=== PATIENT | female | born 1950 | race Two or more races ===

== ENCOUNTER 2020-05-01 08:40 | Inpatient (IN) | payer OTHER, MEDICAID ==
[~2020-05-01] VITALS: Ht 154.9 cm; Wt 106.5 kg
[2020-05-01] MEDS ORDERED: cefTRIAXone 1GM/50ML D5W 50 ML IV ONE ×2 (09:05→11:00)
[2020-05-01] MEDS ORDERED: AZITHROMYCIN 500MG/ 250ML 250 ML IV ONE (09:30)
[2020-05-01] MEDS ORDERED: ZINC SULFATE 220mg CAP or TAB PO ONE (09:30)
[2020-05-01] MEDS ORDERED: SODIUM CHLORIDE 0.9% 1,000 ML IV ONE ×2 (09:30)
[2020-05-01] MEDS ORDERED: ASCORBIC ACID 500 MG TAB PO ONE (09:30)
[2020-05-01 09:43] LABS: Basophils # (auto) 0 10 ^3/uL (0-0.2); Basophils % (auto) 0.3 % (0.0-2.0); Eosinophils # (auto) 0 10 ^3/uL (0-0.8); Eosinophils % (auto) 0.4 % (0.0-7.0); Hematocrit 41.1 % (36.0-46.0); Hemoglobin 13.4 g/dL (12.2-16.2); Lymphocytes % (auto) 16.5 % (10.0-50.0); Mean Corpuscular Hemoglobin 30.6 pg (28.0-32.0); Mean Corpuscular Hgb Conc. 32.6 g/dL (32.0-36.0); Mean Corpuscular Volume 93.8 fL (80.0-100.0); Monocytes # (auto) 0.4 10 ^3/uL (0-1.3); Monocytes % (auto) 6.6 % (0.0-12.0); Neutrophils # (auto) 4.4 10 ^3/uL (1.6-8.6); Neutrophils % (auto) 76.2 % (37.0-80.0); Nucleated Red Blood Cells % 0.1 %; Platelet Count (auto) 148 10^3/uL (140-450); Red Blood Cells 4.39 10^6/uL (4.0-5.20); Red Cell Distribution Width 15.2 % (11.8-14.3); White Blood Cell 5.7 10^3/uL (4.4-10.8)
[2020-05-01 09:53] LABS: Albumin 3.1 g/dL (3.4-5.0); Anion Gap 3 (5-15); Blood Urea Nitrogen 11 mg/dL (7-18); Calcium 8.8 mg/dL (8.5-10.1); Carbon Dioxide 33 mmol/L (21-32); Chloride 103 mmol/L (98-107); Glucose 110 mg/dL (74-106); Potassium 4.1 mmol/L (3.5-5.1); Sodium 139 mmol/L (136-145)
[2020-05-01 09:59] LABS: Alanine Aminotransferase 31 U/L (13-56); Alkaline Phosphatase 105 U/L (45-117); Aspartate Aminotransferase 27 U/L (15-37); BUN/Creatinine Ratio 13.1; Bilirubin, Total 0.7 mg/dL (0.2-1.0); GFR African American 87 mL/min; GFR Non-African American 72 mL/min; Lactate Dehydrogenase 226 U/L (84-246); Total Protein 8.4 g/dL (6.4-8.2)
[2020-05-01 10:17] LABS: INR 1.06 (0.9-1.15); Partial Thromboplastin Time 32.2 sec (23.64-32.05)
[2020-05-01 10:30] VITALS: BP 110/64
[2020-05-01] MEDS ORDERED: FUROSEMIDE 20 MG/2 ML VIAL IV ONE (10:30)
[2020-05-01] MEDS ORDERED: ACETAMINOPHEN 500 MG TAB PO ONE (11:30)
[2020-05-01 12:24] LABS: Urine Bacteria FEW /hpf (None Seen); Urine Blood Negative /uL (Negative); Urine Mucus FEW (None Seen); Urine Specific Gravity 1.007 (1.001-1.035); Urine WBC 15 /hpf (0 - 5)
[2020-05-01] MEDS ORDERED: NITROGLYCERIN 0.4 MG SL TAB SL PRN (12:30)
[2020-05-01] MEDS ORDERED: MORPHINE SULF INJ 2 MG/ML SYRINGE 1ML IV PRN (12:30)
[2020-05-01] MEDS ORDERED: ACETAMINOPHEN 500 MG TAB PO PRN (13:00)
[2020-05-01] MEDS: ALBUTEROL SULF HFA 90MCG INH 200DOSE IN SCH ×2 (14:00→22:07)
[2020-05-01] MEDS: methylPREDNISolone SOD SUCC 40 MG/ML VL IV SCH (14:09)
[2020-05-01] MEDS: CLINDAMYCIN 600MG IV 50 ML IV SCH ×2 (14:10→22:07)
--- NOTE | 2020-05-01 15:25 | NUR ---
Telemetry admit from [facility] admitted to Telemetry unit after SBAR received. Patient oriented to Dunia Greenberg, primary RN, unit, room, bed, and unit policies regarding patient care and visiting hours. Patient now on continuous telemetry monitoring,telemetry reading on arrival to unit is . Patient placed on bedside oxygen, weighed by bedscale and encouraged to call if they need something. All questions and concerns addressed, patient verbalized understanding. Note:
--- NOTE | 2020-05-01 16:19 | NUR ---
HISTOR FOR PATIENT TAKEN FROM ER PHYSICIAN DOCUMENTATION. PATIENT ONLY SPEAKS MAURITIAN AND NO BLUE PHONE AVAILABLE FOR TRANSLATION.
[2020-05-01 16:27] VITALS: BP 105/68
[2020-05-01] MEDS ORDERED: IOHEXOL 350 MG/ML 100ML IJ ONE (16:34)
--- NOTE | 2020-05-01 22:48 | NUR ---
RT NOTE MDI GIVEN BY RN. RT VERIFIED THAT RN WAS AWARE OF PROPER ADMINISTRATION OF MDI. MDI GIVEN WITHOUT INCIDENT.
--- NOTE | 2020-05-02 00:25 | NUR ---
PATIENT SLEEPING GOT CALL THAT PATIENTS O2 WAS AT 78 PERCENT PT EAS ON 6 L N/C. CALLED RT FOR A SIMPLE MASK.
--- NOTE | 2020-05-02 00:30 | NUR ---
PLACED PATIENT ON SIMPLE MASK ON 6L NOW O2 IS 98% NO SIGNS OF DISTRESS NOTED
[2020-05-02] MEDS: methylPREDNISolone SOD SUCC 40 MG/ML VL IV SCH ×2 (00:44→13:15)
--- NOTE | 2020-05-02 03:10 | NUR ---
PATIENT RESTING DENIES SOB DISTRESS OR PAIN. FALL PRECAUTIONS IN PLACE
--- NOTE | 2020-05-02 03:10 | NUR ---
RECEIVED REPORT FROM GALE LEWIS
--- NOTE | 2020-05-02 05:02 | NUR ---
LAB NOTIFIED UNABLE TO DRAW BLOOD. PER ORDER DISPATCHER THEY WILL SEND SOMEONE
[2020-05-02 05:03] VITALS: BP 106/58
[2020-05-02] MEDS: CLINDAMYCIN 600MG IV 50 ML IV SCH (05:17)
[2020-05-02] MEDS: ALBUTEROL SULF HFA 90MCG INH 200DOSE IN SCH ×4 (05:17→22:51)
--- NOTE | 2020-05-02 05:33 | NUR ---
PATIENT EDUCATED ON HOW TO USE IS PATIENT VERBALIZED UNDERSTANDING
--- NOTE | 2020-05-02 05:37 | NUR ---
CALLED LAB AGAIN. SPOKE WITH JOSHUA FROM LAB FOR LABS TO BE DRAWN. PER JOSHUA LABS WILL BE DRAWN " BETWEEN NOW AND 0700" [employer] SUPERVISOR IS MAKING ROUNDS AT THE MOMENT.
--- NOTE | 2020-05-02 07:05 | NUR ---
MDI ADMINISTERED BY JARED RN AT APPROXIMATELY 0517, PT ON 2L NC WITH SPO2 97%, HR 86, RR 18 WITH CLEAR/DIMINISHED BS. WILL CONTINUE TO MONITOR PT.
--- NOTE | 2020-05-02 07:25 | NUR ---
REPORT GIVEN TO DAYSHIFT RN PATIENT DENIES SOB DISTRESS OR PAIN
--- NOTE | 2020-05-02 07:30 | NUR ---
Opening Shift Note Assumed care of patient, awake and alert and oriented. No S/S of distress/SOB or pain on 6L via simple mask. Bed in low and locked position, rails up x2, no-slip socks on, bed alarm on. On COVID unit, appropriate precautions taken. Instructed on POC and to call for assist PRN, will continue to monitor for changes Q1hr and PRN.
[2020-05-02 08:00] VITALS: BP 106/62
--- NOTE | 2020-05-02 08:30 | NUR ---
OXYGEN PATIENT OXYGEN LEVEL ON MASK WAS 98%, PLACED PATIENT ON 5 LPM VIA NASAL CANNULA WHILE AWAKE TO EAT BREAKFAST AND TAKE MEDICATIONS, OXYGEN LEVELS MAINTAINED AT 94%, WILL CONTINUE TO MONITOR.
[2020-05-02 08:43] LABS: Basophils # (auto) 0 10 ^3/uL (0-0.2); Basophils % (auto) 0.1 % (0.0-2.0); Eosinophils # (auto) 0 10 ^3/uL (0-0.8); Hematocrit 42.2 % (36.0-46.0); Hemoglobin 13.5 g/dL (12.2-16.2); Lymphocytes # (auto) 0.5 10 ^3/uL (0.4-5.4); Lymphocytes % (auto) 11.5 % (10.0-50.0); Mean Corpuscular Hemoglobin 30.5 pg (28.0-32.0); Mean Corpuscular Hgb Conc. 32.1 g/dL (32.0-36.0); Mean Corpuscular Volume 95.1 fL (80.0-100.0); Monocytes # (auto) 0.2 10 ^3/uL (0-1.3); Monocytes % (auto) 4.9 % (0.0-12.0); Neutrophils % (auto) 83.5 % (37.0-80.0); Nucleated Red Blood Cells % 0.1 %; Platelet Count (auto) 147 10^3/uL (140-450); Red Blood Cells 4.44 10^6/uL (4.0-5.20); Red Cell Distribution Width 15.1 % (11.8-14.3); White Blood Cell 4.7 10^3/uL (4.4-10.8)
--- NOTE | 2020-05-02 09:00 | NUR ---
[facility] SPOKE TO MARCH, APPAREL EMBROIDERY DIGITIZER AT [facility] REQUESTING CLINICAL INFORMATION TO BE FAXED TO [phone] CALL BACK NUMBER IS [phone], ENDORSED TO HEAD OF MAINTENANCE.
[2020-05-02 09:01] LABS: Albumin 2.9 g/dL (3.4-5.0); Calcium 8.7 mg/dL (8.5-10.1); Potassium 4.5 mmol/L (3.5-5.1)
[2020-05-02 09:04] LABS: Bilirubin, Total 0.4 mg/dL (0.2-1.0); Total Protein 8.2 g/dL (6.4-8.2)
[2020-05-02] MEDS ORDERED: levoFLOXacin 500MG 100 ML IV SCH (10:00)
[2020-05-02] MEDS: ENOXAPARIN SOD 40 MG/0.4 ML SYRINGE SC SCH (10:07)
[2020-05-02] MEDS: ZINC SULFATE 220mg CAP or TAB PO SCH (10:08)
[2020-05-02] MEDS: ASCORBIC ACID 1,000 MG TAB PO SCH (10:08)
[2020-05-02] MEDS: CHOLECALCIFEROL (VITD3) 1,000IU=25mCg TAB PO SCH (10:08)
[2020-05-02 12:00] VITALS: BP 116/53
[2020-05-02] MEDS ORDERED: FUROSEMIDE 40 MG/4 ML VIAL IV ONE (12:45)
[2020-05-02] MEDS ORDERED: DOXYCYCLINE 100 MG TAB/CAP PO ONE (12:45)
--- NOTE | 2020-05-02 13:34 | NUR ---
MDI GIVEN WITH NO ADVERSE RX NOTED, PT ON 2L NC WITH SPO2 98%, HR 78, RR 20 WITH CLEAR/DIMINISHED BS. NO SOB NO DISTRESS NOTED. WILL CONTINUE TO MONITOR PT.
[2020-05-02 16:30] VITALS: BP 103/74
[2020-05-02] MEDS: FUROSEMIDE 40 MG/4 ML VIAL IV SCH (18:17)
[2020-05-02] MEDS ORDERED: METO-158 PO (18:54)
[2020-05-02] MEDS ORDERED: FISH1CAP5 PO (18:54)
--- NOTE | 2020-05-02 19:50 | NUR ---
Opening Shift Note Assumed care of patient with PPE provided. Patient is awake and alert. No S/S of distress/SOB or pain noted. Call light within reach. Bed in lowest locked position with bed rails up x2. Instructed on POC and to call for assist PRN.
[2020-05-02 20:00] VITALS: BP 132/68
[2020-05-02] MEDS: DOXYCYCLINE 100 MG TAB/CAP PO SCH (21:33)
--- NOTE | 2020-05-02 22:52 | NUR ---
MDI ADMINISTERED UNSCHEDULED ADMINISTRATION, SINCE THE SCHEDULED 2200 HAD BEEN MARKED MUCH EARLIER. NO RESPIRATORY DISTRESS NOTED. WILL CONTINUE WITH NEXT SCHEDULED TX.
[2020-05-03] VITALS: BP 112/62
[2020-05-03] MEDS: methylPREDNISolone SOD SUCC 40 MG/ML VL IV SCH ×2 (01:05→14:26)
[2020-05-03 05:00] VITALS: BP 137/50
--- NOTE | 2020-05-03 05:37 | NUR ---
CRITICAL LAB, HOSPITALIST PAGED: HEMATOLOGY CALLED AND REPORTED GRAM POSITIVE COCCI IN CLUSTERS IN THE BLOOD. TO NOTIFY HOSPITALIST. WAITING FOR CALL BACK.
[2020-05-03] MEDS: ALBUTEROL SULF HFA 90MCG INH 200DOSE IN SCH ×3 (06:00→22:23)
[2020-05-03] MEDS: FUROSEMIDE 40 MG/4 ML VIAL IV SCH ×3 (06:27→22:23)
--- NOTE | 2020-05-03 06:41 | NUR ---
HOSPITALIST CALLED BACK: HOSPITALIST SERGIO CALLED BACK AND NOTIFIED OF BLOOD CULTURE RESULTS. NEW ORDERS RECEIVED. TO PLACE ORDERS.
--- NOTE | 2020-05-03 07:35 | NUR ---
Opening Shift Note Assumed care of patient, awake and alert, cymraes speaking. No S/S of distress/SOB or pain, sitting up in a chair. Instructed on POC and to call for assist PRN, will continue to monitor for changes Q1hr and PRN.
[2020-05-03 08:00] VITALS: BP 127/68
[2020-05-03] MEDS: ZINC SULFATE 220mg CAP or TAB PO SCH (09:15)
[2020-05-03] MEDS: levoFLOXacin 500MG 100 ML IV SCH (09:15)
[2020-05-03] MEDS: DOXYCYCLINE 100 MG TAB/CAP PO SCH (09:16)
[2020-05-03] MEDS: ASCORBIC ACID 1,000 MG TAB PO SCH (09:16)
[2020-05-03] MEDS: ENOXAPARIN SOD 40 MG/0.4 ML SYRINGE SC SCH (09:17)
[2020-05-03] MEDS: CHOLECALCIFEROL (VITD3) 1,000IU=25mCg TAB PO SCH (09:17)
[2020-05-03 16:00] VITALS: BP 125/66
--- NOTE | 2020-05-03 19:00 | NUR ---
Opening Shift Note Assumed care of patient, awake and alert. No S/S of distress/SOB or pain. Safety measures in place bed in lowest position, side rails up x2, and call light within reach. Instructed on POC and to call for assist PRN, will continue to monitor for changes Q1hr and PRN.
[2020-05-03 22:00] VITALS: BP 116/75
[2020-05-03] MEDS: ENOXAPARIN SOD 120 MG/0.8 ML SYRINGE SC SCH (22:22)
--- NOTE | 2020-05-03 22:23 | NUR ---
Respiratory note: PT'S SCHEDULED MDI TREATMENT WAS GIVEN BY GALE NICOLE AT 2223. HR 75 RR 18 SP02 95% ON 4L NASAL CANNULA.
[2020-05-04] MEDS: methylPREDNISolone SOD SUCC 40 MG/ML VL IV SCH ×2 (02:08→13:40)
[2020-05-04] MEDS: ALBUTEROL SULF HFA 90MCG INH 200DOSE IN SCH ×3 (06:02→22:48)
[2020-05-04] MEDS: FUROSEMIDE 40 MG/4 ML VIAL IV SCH (06:03)
[2020-05-04 06:06] VITALS: BP 112/54
--- NOTE | 2020-05-04 07:30 | NUR ---
Respiratory note: MDI BREATHING TX ADMINISTERED BY NOC SHIFT RN. SPO2 97% ON 4LPM NASAL CANNULA. WILL RETURN FOR NEXT SCHEDULED TX.
--- NOTE | 2020-05-04 07:42 | NUR ---
Opening Shift Note Assumed care of patient, awake and alert, tristanian speaking. No S/S of distress/SOB or pain. Instructed on POC and to call for assist PRN, will continue to monitor for changes Q1hr and PRN.
[2020-05-04 09:28] LABS: Basophils # (auto) 0 10 ^3/uL (0-0.2); Eosinophils # (auto) 0 10 ^3/uL (0-0.8); Hematocrit 45.2 % (36.0-46.0); Hemoglobin 14.7 g/dL (12.2-16.2); Lymphocytes # (auto) 0.5 10 ^3/uL (0.4-5.4); Lymphocytes % (auto) 7.7 % (10.0-50.0); Mean Corpuscular Hemoglobin 30.3 pg (28.0-32.0); Mean Corpuscular Hgb Conc. 32.5 g/dL (32.0-36.0); Mean Corpuscular Volume 93.2 fL (80.0-100.0); Monocytes # (auto) 0.2 10 ^3/uL (0-1.3); Monocytes % (auto) 3.3 % (0.0-12.0); Platelet Count (auto) 187 10^3/uL (140-450); Red Blood Cells 4.85 10^6/uL (4.0-5.20); Red Cell Distribution Width 14.8 % (11.8-14.3); White Blood Cell 6.7 10^3/uL (4.4-10.8)
[2020-05-04 09:49] LABS: BUN/Creatinine Ratio 27.3; Calcium 9.2 mg/dL (8.5-10.1); Magnesium 2.1 mg/dL (1.6-2.6)
[2020-05-04] MEDS: ZINC SULFATE 220mg CAP or TAB PO SCH (10:35)
[2020-05-04] MEDS: levoFLOXacin 500MG 100 ML IV SCH (10:35)
[2020-05-04] MEDS: ASCORBIC ACID 1,000 MG TAB PO SCH (10:36)
[2020-05-04] MEDS: CHOLECALCIFEROL (VITD3) 1,000IU=25mCg TAB PO SCH (10:36)
[2020-05-04] MEDS: ENOXAPARIN SOD 120 MG/0.8 ML SYRINGE SC SCH ×2 (10:36→22:49)
[2020-05-04 11:56] VITALS: BP 127/71
--- NOTE | 2020-05-04 12:48 | NUR ---
Est energy needs 9834-4963 kcal (14-18 kcal/kg BW 106.9kg) Est protein needs 48-57g (1-1.2g/kg IBW 47.7kg) Will reassess prn. Addendum: 05/04/20 at [address] Amended: Links added.
[2020-05-04 14:07] VITALS: BP 127/71
--- NOTE | 2020-05-04 14:07 | NUR ---
Respiratory note: MDI TX WAS ADMINISTERED BY RN. PT CURRENTLY HR 80, RR 16, SPO2 95% ON 4LPM NASAL CANNULA. NO S/S OF RESPIRATORY DISTRESS NOTED.
--- NOTE | 2020-05-04 20:30 | NUR ---
Opening Shift Note Assumed care of patient, awake and alert, oriented x 4, follows direction. On oxygen at 3L via NC with even and unlabored respiration. patient was able to return demonstration with proper use of incentive spirometer, 500ml inspire volume, encourage patient to continue to use, patient verbalized understanding. patient uses BSC independently with steady gait and turns in bed independently. Bed in low locked position with side rails up x 2 and call light within reach. No S/S of distress/SOB or pain. Instructed on POC and to call for assist PRN, will continue to monitor for changes Q1hr and PRN.
[2020-05-04 22:00] VITALS: BP 108/59
--- NOTE | 2020-05-04 22:48 | NUR ---
RT NOTE MDI GIVEN BY GALE TOBAR. RT VERIFIED THAT RN WAS FAMILIAR WITH THE ADMINISTRATION OF MDI.
[2020-05-05] MEDS: methylPREDNISolone SOD SUCC 40 MG/ML VL IV SCH ×2 (01:08→12:56)
[2020-05-05 05:00] VITALS: BP 129/74
[2020-05-05] MEDS: ALBUTEROL SULF HFA 90MCG INH 200DOSE IN SCH ×3 (06:23→22:00)
--- NOTE | 2020-05-05 06:43 | NUR ---
Closing Note patient resting in bed with oxygen on at 3L via NC with even and unlabored respiration. no s/s of distress. bed in low locked position with side rails up x 2 and call light within reach.
--- NOTE | 2020-05-05 08:00 | NUR ---
RT NOTE: TX GIVEN BY RN. NO SIGNS OF RESPIRATORY DISTRESS. WILL CONTINUE TO MONITOR.
--- NOTE | 2020-05-05 08:00 | NUR ---
Received pt resting comfortably, assisted pt out of bed to BSC, pt had a BM, pt assisted back to bed, call light within reach, pt denies pain or discomfort at this time.
--- NOTE | 2020-05-05 09:25 | NUR ---
Oxygen pt's O2 sat 96& at 3 lit N/C, decreased pt's O2 level to 2 lit N/C, pt's O2 sat 93%, will continue to monitor pt.
[2020-05-05 09:51] LABS: Basophils # (auto) 0 10 ^3/uL (0-0.2); Basophils % (auto) 0.2 % (0.0-2.0); Eosinophils # (auto) 0 10 ^3/uL (0-0.8); Hematocrit 43.2 % (36.0-46.0); Hemoglobin 14.4 g/dL (12.2-16.2); Lymphocytes # (auto) 0.5 10 ^3/uL (0.4-5.4); Lymphocytes % (auto) 14.3 % (10.0-50.0); Mean Corpuscular Hemoglobin 30.9 pg (28.0-32.0); Mean Corpuscular Hgb Conc. 33.2 g/dL (32.0-36.0); Monocytes # (auto) 0.2 10 ^3/uL (0-1.3); Monocytes % (auto) 4.4 % (0.0-12.0); Neutrophils # (auto) 2.9 10 ^3/uL (1.6-8.6); Neutrophils % (auto) 81.1 % (37.0-80.0); Nucleated Red Blood Cells % 0.1 %; Platelet Count (auto) 171 10^3/uL (140-450); Red Blood Cells 4.64 10^6/uL (4.0-5.20); Red Cell Distribution Width 14.9 % (11.8-14.3); White Blood Cell 3.6 10^3/uL (4.4-10.8)
--- NOTE | 2020-05-05 10:00 | NUR ---
Hold Plaquenil due to pt's QTC 506, will inform doctor.
[2020-05-05 10:13] VITALS: BP 133/80
--- NOTE | 2020-05-05 10:20 | NUR ---
Oxygen pt's O2 sat 96% at 2 lit N/C, decreased pt's O2 level to 1 lit N/C, pt's O2 sat 92%, will continue to monitor pt.
[2020-05-05 10:23] LABS: Calcium 9.1 mg/dL (8.5-10.1); Potassium 4.2 mmol/L (3.5-5.1)
[2020-05-05 10:28] LABS: BUN/Creatinine Ratio 34.4; Bilirubin, Total 0.7 mg/dL (0.2-1.0); Total Protein 8.2 g/dL (6.4-8.2)
[2020-05-05] MEDS: levoFLOXacin 500MG 100 ML IV SCH (10:30)
[2020-05-05] MEDS: ZINC SULFATE 220mg CAP or TAB PO SCH (10:30)
[2020-05-05] MEDS: ASCORBIC ACID 1,000 MG TAB PO SCH (10:30)
[2020-05-05] MEDS: CHOLECALCIFEROL (VITD3) 1,000IU=25mCg TAB PO SCH (10:31)
[2020-05-05] MEDS: ENOXAPARIN SOD 120 MG/0.8 ML SYRINGE SC SCH ×2 (10:31→22:00)
[2020-05-05 12:34] VITALS: BP 120/78
--- NOTE | 2020-05-05 14:26 | NUR ---
Pt's current O2 saturation 92% at room air, pt educated to continue with the incentive spirometer, pt re educated on the use, the importance, and obtained return demonstration, pt was able to reach 1000 ml, will continue to monitor pt.
--- NOTE | 2020-05-05 14:30 | NUR ---
RT NOTE: CALLED WAS MADE TO RN IN COVID UNIT TO SEE IF MDI TX HAD BEEN GIVEN BEFORE I PUT ON PPE AND ENTERED UNIT. RN STATED THAT SHE HAD ALREADY GIVEN TX AND THAT PT WAS STILL ON 2L NC AND STABLE WITH NO SIGNS OF RESPIRATORY DISTRESS. VITALS SEEN ON MONITOR AT [facility]. WILL CONTINUE TO MONITOR. Addendum: 05/05/20 at 1516 by RT VIRGINIE RT PT ON 3L NC NOT 2L NC
--- NOTE | 2020-05-05 14:45 | NUR ---
Oxygen Received a call from tele monitor unit to report pt's O2 sat to be at 84%, pt laying in bed, pt pull up in bed and elevated HOB, pt placed back on 1 lit of O2, pt's O2 level at 88%, increased oxygen to 2 lit via N/C, pt's O2 at 92%, will continue to monitor pt. Pt also educated to turn and reposition frequently, will continue to monitor pt.
--- NOTE | 2020-05-05 15:18 | NUR ---
Doctor called and spoke to Dr. Aguiar, doctor informed that plaquenil was held due to pt's QTC 506, doctor also informed that pt was titrated to room air and that pt's O2 sat decreased when pt lay back in bed to 84%, pt placed back on 2 lit via N/C. Pt's P2 at 92%.
[2020-05-05 16:41] VITALS: BP 127/73
--- NOTE | 2020-05-05 17:59 | NUR ---
Hospitalist MD Aguiar at bedside, aware of patient status. Per MD Aguiar cont to attempt getting patient off O2. If patient's o2 sats cont to trend down tomorrow, then patient may need to go home with home o2. MD Aguiar also informed patient that she will need to start using CPAP machine at home. Per patient she has a CPAP machine at home already. MD Aguiar explained POC of care to patient and patient verbalized understanding. Will inform primary RN Carol.
--- NOTE | 2020-05-05 18:25 | NUR ---
Oxygen Will attempt to titrate pt off the oxygen as per doctor's request, pt's O2 sat 95% at 2 lit N/C, decreased pt's O2 level to 1 lit N/C, pt's O2 sat 93%, will continue to monitor pt.
--- NOTE | 2020-05-05 20:00 | NUR ---
OXYGEN PATIENT SATURATING AT 95% ON 1L NC AT THIS TIME. WILL TITRATE O2 DOWN TO .5L. WILL CONTINUE TO MONITOR.
[2020-05-05 21:30] VITALS: BP 117/56
--- NOTE | 2020-05-05 21:35 | NUR ---
OXYGEN PATIENT TOLERATING O2 AT .5L SATURATING AT 93%. WILL CONTINUE TO MONITOR.
--- NOTE | 2020-05-05 22:00 | NUR ---
Respiratory note: PT'S SCHEDULED MDI TREATMENT WAS GIVEN BY GALE HASKINS AT 2200.
--- NOTE | 2020-05-05 22:01 | NUR ---
MEDICATION HELD PATIENTS QTC ON EKG IS 509. PER MD NOTES, PLAQUENIL IS TO BE HELD.
--- NOTE | 2020-05-05 22:34 | NUR ---
OXYGEN PATIENTS O2 DROPPED TO 85% WHILE SLEEPING. WOKE PATIENT UP AND HAD HER TAKE DEEP BREATHS IN AND OUT, O2 WENT UP TO 95% OXYGEN WAS INCREASED TO 2L WHILE PATIENT SLEEPS. WILL CONTINUE TO MONITOR.
--- NOTE | 2020-05-05 23:44 | NUR ---
OXYGEN PATIENTS OXYGEN IS AT 95% SATURATION ON 2L NASAL CANNULA. WILL CONTINUE TO MONITOR.
[2020-05-06 05:00] VITALS: BP 118/75
[2020-05-06] MEDS: ALBUTEROL SULF HFA 90MCG INH 200DOSE IN SCH ×2 (05:27→14:26)
--- NOTE | 2020-05-06 05:27 | NUR ---
Respiratory note: NO RESPIRATORY DISTRESS NOTED. SPO2 98% ON 2 L NC, HR 52, RR 18, BS CLEAR/DIMINISHED BILATERALLY. 1 PUFF ALBUTEROL (90MCG) GIVEN VIA MDI, WITH CHAMBER BY RN. NO ADVERSE EFFECTS NOTED. WILL CONTINUE TO MONITOR PT. CHARTING COMPLETE FROM OUTSIDE OF ROOM.
--- NOTE | 2020-05-06 07:30 | NUR ---
Opening Shift Note Assumed care of patient, awake and alert, spainish speaking. No S/S of distress/SOB or pain. Instructed on POC and to call for assist PRN, will continue to monitor for changes Q1hr and PRN.
[2020-05-06 08:30] VITALS: BP 130/65
[2020-05-06] MEDS ORDERED: methylPREDNISolone SOD SUCC 40 MG/ML VL IV SCH (10:00)
[2020-05-06] MEDS ORDERED: levoFLOXacin 500 MG TAB PO SCH (10:00)
--- NOTE | 2020-05-06 10:32 | NUR ---
O2 removed, patient sats at 87-88% sitting, 83-84 standing on RA
[2020-05-06] MEDS: ZINC SULFATE 220mg CAP or TAB PO SCH (10:41)
[2020-05-06] MEDS: ENOXAPARIN SOD 120 MG/0.8 ML SYRINGE SC SCH (10:42)
[2020-05-06] MEDS: CHOLECALCIFEROL (VITD3) 1,000IU=25mCg TAB PO SCH (10:42)
[2020-05-06] MEDS: ASCORBIC ACID 1,000 MG TAB PO SCH (10:42)
[2020-05-06 13:00] VITALS: BP 116/72
--- NOTE | 2020-05-06 14:23 | NUR ---
assessment Patient is a 69 year old female who is alert and oriented. Yeimi BEASLEY is translating for us. Prior to admission patient lived home with family and functioned independently. Patient informed me she is able to care for her own ADLs. Per patient she will return home to her prior living arrangements post discharge and will need transportation home. Patient informed me she has a cane for home use. Patients PCP is in [place]. PAtient feels safe returning home on discharge. I informed patient she has a right to speak to a psychotherapist social worker regarding all care. I informed patient she has a right to participate in any and all discharge planning. Patient does not have a POA and advanced directive. I have offered patient information on POA and advanced directives. I informed the patient the advantages and benefits of having an Advanced Directive. Patient verbalized understanding and agreed to discharge plan. Addendum: 05/06/20 at 1426 by Isela OSUNA Amended: Links added.
--- NOTE | 2020-05-06 14:26 | NUR ---
Respiratory note: PT GIVEN 1 PUFF ALBUTEROL (90MCG) GIVEN VIA MDI WITH CHAMBER, WITH NO ADVERSE EFFECTS NOTED. SPO2 96% ON 2 L NC, HR 73, RR 22, BS CLEAR/DIMINISHED BILATERALLY. WILL CONTINUE TO MONITOR PT. CHARTING COMPLETE FROM OUTSIDE OF PT ROOM.
--- NOTE | 2020-05-06 14:34 | NUR ---
I called [facility] [phone] and spoke with Office Secretary Gladys regarding transportation request. She will call back with authorization number for [facility]. I faxed home health order to [facility] [phone]-per Gladys she will arrange the home health and will call me back to let me know which agency has accepted.
[2020-05-06 15:07] VITALS: BP 112/54
--- NOTE | 2020-05-06 19:54 | NUR ---
TRIED TO PAGE MANAGER IMPLEMENTATION ABOUT STATUS ON PATIENTS TRANSPORTATION. WAS TOLD THEY WENT HOME FOR THE DAY.WILL CALL [facility].
--- NOTE | 2020-05-06 20:03 | NUR ---
WENT TO UPDATE PATIENT ON TRANSPORTATION STATUS, PATIENTS STATED HIS DAUGHTER IS GOING TO COME PICK HIM AND UP AT THIS TIME.
--- NOTE | 2020-05-06 20:45 | NUR ---
SECURITY AND RESOURCE NURSE PAGED TO TAKE PATIENT DOWNSTAIRS. PATIENT TRANSPORTED OUT OF COVID UNIT VIA WHEELCHAIR, NO S/S DISTRESS OR SOB.
== END 2020-05-06 20:30 | disposition home or self-care (01) | DRG 177 ==
LOC: ER 08:40 → EDBD 08:40 → TELE 08:41 → TELE-EAST 16:02
PROVIDERS: ADMIT Internal Medicine; ATTEND Internal Medicine
DX: U07.1 COVID-19 (principal); J96.01 Acute respiratory failure with hypoxia; J12.89 Other viral pneumonia; I50.43 Acute on chronic combined systolic (congestive) and diastolic (congestive) heart failure; E44.1 Mild protein-calorie malnutrition; N39.0 Urinary tract infection, site not specified; J98.11 Atelectasis; Z68.42 Body mass index [BMI] 45.0-49.9, adult; J96.12 Chronic respiratory failure with hypercapnia; E66.01 Morbid (severe) obesity due to excess calories; I27.21 Secondary pulmonary arterial hypertension; I11.0 Hypertensive heart disease with heart failure; Z90.49 Acquired absence of other specified parts of digestive tract
CPT/HCPCS: 36415; 36600; 71045; 71275; 80048; 80053; 81001; 82728; 82805; 83036; 83615; 83735; 83880; 84484; 85025; 85379; 85610; 85730; 86141; 87040; 87070; 87077; 87086; 87186; 87804; 87880; 93005; 94640; 99291; G0378; J0696; J1956; J3490

== ENCOUNTER 2023-04-04 14:45 | Emergency (ER) | payer OTHER, MEDICAID ==
[~2023-04-04] VITALS: Ht 162.6 cm; Wt 92.0 kg
[~2023-04-04 14:45] MED LIST: FISH1CAP5 PO; METO-158 PO
[2023-04-04 15:51] VITALS: BP 123/52
[2023-04-04 16:17] LABS: Basophils # (auto) 0 10 ^3/uL (0-0.2); Basophils % (auto) 0.8 % (0.0-2.0); Eosinophils # (auto) 0.1 10 ^3/uL (0-0.8); Eosinophils % (auto) 1.7 % (0.0-7.0); Hematocrit 32.9 % (36.0-46.0); Hemoglobin 10.7 g/dL (12.2-16.2); Lymphocytes # (auto) 1.3 10 ^3/uL (0.4-5.4); Lymphocytes % (auto) 33.1 % (10.0-50.0); Mean Corpuscular Hemoglobin 32.5 pg (28.0-32.0); Mean Corpuscular Hgb Conc. 32.5 g/dL (32.0-36.0); Monocytes # (auto) 0.3 10 ^3/uL (0-1.3); Monocytes % (auto) 7.5 % (0.0-12.0); Neutrophils # (auto) 2.2 10 ^3/uL (1.6-8.6); Neutrophils % (auto) 56.9 % (37.0-80.0); Nucleated Red Blood Cells % 0.3 %; Red Blood Cells 3.29 10^6/uL (4.0-5.20); Red Cell Distribution Width 13.7 % (11.8-14.3); White Blood Cell 3.8 10^3/uL (4.4-10.8)
[2023-04-04 16:33] LABS: Albumin 3.8 g/dL (3.4-5.0); Calcium 9.5 mg/dL (8.5-10.1)
[2023-04-04 16:36] LABS: BUN/Creatinine Ratio 20.4 (10.0-20.0); Bilirubin, Total 0.8 mg/dL (0.2-1.0); Total Protein 7.7 g/dL (6.4-8.2)
[2023-04-04] MEDS ORDERED: FUROSEMIDE 40 MG/4 ML VIAL IV ONE (17:00)
== END 2023-04-04 22:58 | disposition left against medical advice (07) ==
LOC: ER 14:45
DX: J96.00 Acute respiratory failure, unspecified whether with hypoxia or hypercapnia (principal); I11.0 Hypertensive heart disease with heart failure; I50.9 Heart failure, unspecified; Z90.49 Acquired absence of other specified parts of digestive tract; Z79.899 Other long term (current) drug therapy
CPT/HCPCS: 36415; 36600; 71045; 80053; 82805; 83735; 83880; 84484; 85025; 93005

== ENCOUNTER 2023-04-05 13:34 | Inpatient (IN) | payer OTHER, MEDICAID ==
[~2023-04-05] VITALS: Ht 162.6 cm; Wt 103.0 kg
[2023-04-05 15:44] LABS: Basophils # (auto) 0 10 ^3/uL (0-0.2); Eosinophils # (auto) 0 10 ^3/uL (0-0.8); Hematocrit 31.5 % (36.0-46.0); Hemoglobin 10.1 g/dL (12.2-16.2); Lymphocytes # (auto) 0.9 10 ^3/uL (0.4-5.4); Lymphocytes % (auto) 29.2 % (10.0-50.0); Mean Corpuscular Hemoglobin 32.4 pg (28.0-32.0); Mean Corpuscular Hgb Conc. 32.1 g/dL (32.0-36.0); Mean Corpuscular Volume 100.9 fL (80.0-100.0); Monocytes # (auto) 0.3 10 ^3/uL (0-1.3); Monocytes % (auto) 9.3 % (0.0-12.0); Neutrophils # (auto) 1.8 10 ^3/uL (1.6-8.6); Neutrophils % (auto) 59.5 % (37.0-80.0); Nucleated Red Blood Cells % 0.1 %; Red Blood Cells 3.12 10^6/uL (4.0-5.20); Red Cell Distribution Width 14.1 % (11.8-14.3)
[2023-04-05 16:06] LABS: Potassium 4.8 mmol/L (3.5-5.1)
[2023-04-05 16:14] LABS: Albumin 3.9 g/dL (3.4-5.0); BUN/Creatinine Ratio 18.7 (10.0-20.0); Bilirubin, Total 0.6 mg/dL (0.2-1.0); Calcium 9.6 mg/dL (8.5-10.1); Magnesium 2.7 mg/dL (1.6-2.6); Total Protein 7.3 g/dL (6.4-8.2)
[2023-04-05] MEDS ORDERED: AZITHROMYCIN 250 MG TAB PO ONE (23:30)
[2023-04-05] MEDS ORDERED: FUROSEMIDE 20 MG/2 ML VIAL IV ONE (23:30)
[2023-04-05] MEDS ORDERED: cefTRIAXone 1GM/50ML D5W 50 ML IV ONE (23:30)
[2023-04-06] VITALS (24 sets, daily range): BP systolic 87–123; BP diastolic 31–60
[2023-04-06] MEDS ORDERED: MORPHINE SULFATE INJ 2 MG/ml SYRG IV PRN ×2 (02:45)
[2023-04-06] MEDS ORDERED: ONDANSETRON HCL 4 MG/2 ML VIAL IV PRN (02:45)
[2023-04-06] MEDS ORDERED: NITROGLYCERIN 0.4 MG SL TAB SL PRN (02:45)
[2023-04-06] MEDS: ENOXAPARIN SOD 100 MG/1 ML SYRINGE SC SCH ×2 (03:41→18:00)
[2023-04-06] MEDS: methylPREDNISolone SOD SUCC 125 MG/2 ML VL IV SCH ×3 (03:41→22:22)
[2023-04-06] MEDS ORDERED: FUROSEMIDE 40 MG/4 ML VIAL IV ONE ×2 (06:30→07:30)
[2023-04-06] MEDS: IPRATROPIUM BROM 0.5 MG/2.5ML INH SOL NEB SCH ×5 (06:32→22:13)
[2023-04-06] MEDS: ALBUTEROL SULF 2.5 MG/0.5ML(0.5%) NEB SOLN NEB SCH ×5 (06:32→22:13)
[2023-04-06] MEDS: FUROSEMIDE 40 MG/4 ML VIAL IV SCH ×3 (06:37→22:23)
[2023-04-06 07:32] LABS: BUN/Creatinine Ratio 21.3 (10.0-20.0); Calcium 9.6 mg/dL (8.5-10.1)
[2023-04-06] MEDS ORDERED: FUROSEMIDE 20 MG/2 ML VIAL IV ONE (08:00)
[2023-04-06 08:19] LABS: INR 1.08 (0.9-1.15)
[2023-04-06 09:50] LABS: Basophils # (auto) 0 10 ^3/uL (0-0.2); Eosinophils # (auto) 0 10 ^3/uL (0-0.8); Lymphocytes # (auto) 0.3 10 ^3/uL (0.4-5.4); Monocytes # (auto) 0.1 10 ^3/uL (0-1.3)
[2023-04-06 09:51] LABS: Basophils % (auto) 0.3 % (0.0-2.0); Eosinophils % (auto) 0.2 % (0.0-7.0); Hematocrit 32.5 % (36.0-46.0); Hemoglobin 10.4 g/dL (12.2-16.2); Lymphocytes % (auto) 12.4 % (10.0-50.0); Mean Corpuscular Hemoglobin 32.5 pg (28.0-32.0); Mean Corpuscular Hgb Conc. 32.1 g/dL (32.0-36.0); Mean Corpuscular Volume 101.5 fL (80.0-100.0); Monocytes % (auto) 2.5 % (0.0-12.0); Neutrophils # (auto) 2.4 10 ^3/uL (1.6-8.6); Neutrophils % (auto) 84.6 % (37.0-80.0); Nucleated Red Blood Cells % 0.4 %; Red Cell Distribution Width 13.9 % (11.8-14.3); White Blood Cell 2.8 10^3/uL (4.4-10.8)
[2023-04-06] MEDS: SPIRONOLACTONE 25 MG TAB PO SCH (10:00)
[2023-04-06] MEDS ORDERED: DIGOXIN 0.125 MG TAB PO SCH (10:00)
[2023-04-06] MEDS: CARVEDILOL 3.125 MG TAB PO SCH ×2 (10:00→22:24)
[2023-04-06] MEDS: PANTOPRAZOLE 40 MG TAB PO SCH (11:15)
[2023-04-06] MEDS ORDERED: POTA-180 PO (16:31)
[2023-04-06] MEDS ORDERED: FURO1TAB31 PO (16:31)
[2023-04-06 21:39] LABS: Magnesium 2.6 mg/dL (1.6-2.6); Potassium 5.3 mmol/L (3.5-5.1)
[2023-04-06] MEDS ORDERED: ATORVASTATIN 20 MG TAB PO SCH (22:00)
[2023-04-07] VITALS: BP 105/43
[2023-04-07 00:58] VITALS: BP 118/62
[2023-04-07 01:11] VITALS: BP 13/46
[2023-04-07] MEDS: ALBUTEROL SULF 2.5 MG/0.5ML(0.5%) NEB SOLN NEB SCH ×4 (02:03→14:14)
[2023-04-07] MEDS: IPRATROPIUM BROM 0.5 MG/2.5ML INH SOL NEB SCH ×4 (02:03→14:14)
[2023-04-07 05:00] VITALS: BP 112/46
[2023-04-07] MEDS: FUROSEMIDE 40 MG/4 ML VIAL IV SCH ×2 (05:17→14:49)
[2023-04-07] MEDS: methylPREDNISolone SOD SUCC 125 MG/2 ML VL IV SCH ×2 (05:18→14:49)
[2023-04-07] MEDS: ENOXAPARIN SOD 100 MG/1 ML SYRINGE SC SCH (05:24)
[2023-04-07 07:19] LABS: Basophils # (auto) 0 10 ^3/uL (0-0.2); Basophils % (auto) 0.1 % (0.0-2.0); Eosinophils # (auto) 0 10 ^3/uL (0-0.8); Eosinophils % (auto) 0.1 % (0.0-7.0); Hematocrit 29.8 % (36.0-46.0); Lymphocytes # (auto) 0.4 10 ^3/uL (0.4-5.4); Lymphocytes % (auto) 16.6 % (10.0-50.0); Mean Corpuscular Hemoglobin 33.3 pg (28.0-32.0); Mean Corpuscular Hgb Conc. 33.6 g/dL (32.0-36.0); Mean Corpuscular Volume 99.2 fL (80.0-100.0); Monocytes # (auto) 0 10 ^3/uL (0-1.3); Monocytes % (auto) 1.4 % (0.0-12.0); Neutrophils # (auto) 1.9 10 ^3/uL (1.6-8.6); Neutrophils % (auto) 81.8 % (37.0-80.0); Nucleated Red Blood Cells % 0.1 %; Red Cell Distribution Width 13.8 % (11.8-14.3); White Blood Cell 2.3 10^3/uL (4.4-10.8)
[2023-04-07 07:58] LABS: Potassium 4.6 mmol/L (3.5-5.1)
[2023-04-07 08:07] LABS: BUN/Creatinine Ratio 28.4 (10.0-20.0); Calcium 8.6 mg/dL (8.5-10.1)
[2023-04-07 08:30] VITALS: BP 116/56
[2023-04-07] MEDS: CARVEDILOL 3.125 MG TAB PO SCH (10:00)
[2023-04-07] MEDS: PANTOPRAZOLE 40 MG TAB PO SCH (10:06)
[2023-04-07] MEDS: SPIRONOLACTONE 25 MG TAB PO SCH (10:06)
[2023-04-07 14:02] VITALS: BP 115/69
== END 2023-04-07 15:57 | disposition home health service (06) | DRG 189 ==
LOC: EDBD 13:34 → ER 13:34 → UNDOADMIN 04-06 02:44 → TELE 04-06 02:44 → OBSVTOIN 04-06 09:33 → DOU IN ICU 04-06 09:41 → TELE-WESTW 04-06 23:50
PROVIDERS: ADMIT Hospitalist; ATTEND Hospitalist
PROC: 5A09357 Assistance with Respiratory Ventilation, Less than 24 Consecutive Hours, Continuous Positive Airway Pressure (ICD-10-PCS; principal; 2023-04-06)
DX: J96.22 Acute and chronic respiratory failure with hypercapnia (principal); I50.23 Acute on chronic systolic (congestive) heart failure; J18.9 Pneumonia, unspecified organism; I13.0 Hypertensive heart and chronic kidney disease with heart failure and stage 1 through stage 4 chronic kidney disease, or unspecified chronic kidney disease; E66.2 Morbid (severe) obesity with alveolar hypoventilation; J44.0 Chronic obstructive pulmonary disease with (acute) lower respiratory infection; I42.9 Cardiomyopathy, unspecified; J96.21 Acute and chronic respiratory failure with hypoxia; K21.9 Gastro-esophageal reflux disease without esophagitis; N18.30 Chronic kidney disease, stage 3 unspecified; I27.81 Cor pulmonale (chronic); I48.0 Paroxysmal atrial fibrillation; E78.5 Hyperlipidemia, unspecified; Z79.899 Other long term (current) drug therapy; Z87.442 Personal history of urinary calculi; Z99.81 Dependence on supplemental oxygen; Z68.39 Body mass index [BMI] 39.0-39.9, adult
CPT/HCPCS: 36415; 36600; 71045; 76604; 80048; 80053; 82805; 83735; 83880; 84132; 84484; 85025; 85610; 87081; 93005; 93306; 94640; 94660; G0378; J0696

== ENCOUNTER 2023-04-18 12:10 | Emergency (ER) | payer OTHER, MEDICAID ==
[~2023-04-18] VITALS: Ht 160 cm; Wt 113.6 kg
[~2023-04-18 12:10] MED LIST changes: +FURO1TAB31 PO; +POTA-180 PO
[2023-04-18] MEDS ORDERED: IBUPROFEN 600 MG TAB PO ONE (16:45)
[2023-04-18 18:36] LABS: Basophils # (auto) 0 10 ^3/uL (0-0.2); Basophils % (auto) 0.2 % (0.0-2.0); Eosinophils # (auto) 0 10 ^3/uL (0-0.8); Hemoglobin 8.8 g/dL (12.2-16.2); Lymphocytes # (auto) 0.6 10 ^3/uL (0.4-5.4); Lymphocytes % (auto) 5.4 % (10.0-50.0); Mean Corpuscular Hemoglobin 32.7 pg (28.0-32.0); Mean Corpuscular Hgb Conc. 32.8 g/dL (32.0-36.0); Mean Corpuscular Volume 99.8 fL (80.0-100.0); Monocytes # (auto) 0.5 10 ^3/uL (0-1.3); Monocytes % (auto) 5.1 % (0.0-12.0); Neutrophils # (auto) 9.2 10 ^3/uL (1.6-8.6); Neutrophils % (auto) 89.3 % (37.0-80.0); White Blood Cell 10.3 10^3/uL (4.4-10.8)
[2023-04-18 19:04] LABS: Albumin 3.3 g/dL (3.4-5.0); Blood Urea Nitrogen 48 mg/dL (7-18); Calcium 8.8 mg/dL (8.5-10.1); Chloride 95 mmol/L (98-107); Glucose 169 mg/dL (74-106); Potassium 4.5 mmol/L (3.5-5.1); Sodium 141 mmol/L (136-145)
[2023-04-18 19:08] LABS: Alanine Aminotransferase 33 U/L (13-56); Alkaline Phosphatase 146 U/L (45-117); Aspartate Aminotransferase 40 U/L (15-37); BUN/Creatinine Ratio 25.8 (10.0-20.0); Bilirubin, Total 0.9 mg/dL (0.2-1.0); GFR African American 34 mL/min; GFR Non-African American 28 mL/min; Total Protein 6.4 g/dL (6.4-8.2)
[2023-04-18 19:22] LABS: INR 1.26 (0.9-1.15); Partial Thromboplastin Time 29.9 sec (24.6-33.4)
[2023-04-18 19:26] LABS: Anion Gap 0.99999 (5-15)
[2023-04-18 19:30] LABS: Carbon Dioxide > 45 mmol/L (21-32)
[2023-04-18] MEDS ORDERED: LIDOCAINE 1% HCL (LOCAL ANESTH.) INJ 20ML MDV ID ONE (19:30)
[2023-04-18] MEDS ORDERED: ceFAZolin 1GM/50ML 50 ML IV ONE (19:30)
[2023-04-18] MEDS ORDERED: TETANUS-DIPTH-ACEL PERTUSSIS 0.5ML SYR Tdap IM ONE (19:30)
[2023-04-18 22:59] VITALS: BP 121/38
== END 2023-04-18 23:43 | disposition short-term general hospital (02) ==
LOC: EDBD 12:10 → EDSEX 12:10 → ER 12:10 → EDUNIT# 12:10 → ER 23:43
DX: S72.491A Other fracture of lower end of right femur, initial encounter for closed fracture (principal); S91.114A Laceration without foreign body of right lesser toe(s) without damage to nail, initial encounter; S80.01XA Contusion of right knee, initial encounter; J90 Pleural effusion, not elsewhere classified; R06.89 Other abnormalities of breathing; E78.5 Hyperlipidemia, unspecified; K21.9 Gastro-esophageal reflux disease without esophagitis; R51.9 Headache, unspecified; R07.89 Other chest pain; I48.91 Unspecified atrial fibrillation; I13.0 Hypertensive heart and chronic kidney disease with heart failure and stage 1 through stage 4 chronic kidney disease, or unspecified chronic kidney disease; N18.30 Chronic kidney disease, stage 3 unspecified; I50.9 Heart failure, unspecified; Z79.899 Other long term (current) drug therapy; W19.XXXA Unspecified fall, initial encounter; Y93.89 Activity, other specified; Y92.89 Other specified places as the place of occurrence of the external cause; Y99.8 Other external cause status
CPT/HCPCS: 12002; 36415; 70450; 71045; 73600; 73630; 73700; 80053; 85018; 85025; 85610; 85730; 86850; 86900; 86901; 90471; 90715; 99285; J0690; J2001